=== PATIENT | male | born 1980 | race Caucasian/White ===

== ENCOUNTER → 2017-04-29 | Outpatient (CLI) | payer BC, OTHER ==
[~2017-04-29] MED LIST: CATHETER FLUSH 10 ML SYR IV PRN
--- NOTE | 2017-04-29 12:36 | Diagnostic Imaging Report ---
EXAMINATION: Hepatobiliary scan with ejection fraction. INDICATION: Abdominal pain. TECHNIQUE: The study was performed following administration of 5.48 mCi of 99M technetium Choletec. One can of Ensure was also used for the ejection fraction. COMPARISON: There are no prior studies available for comparison. FINDINGS: There is uptake of the radiotracer by the gallbladder before 30 minutes. This would weigh against the diagnosis of acute cholecystitis. There is also extension of the radiotracer into the small bowel indicating that the common bile duct is not obstructed. The ejection fraction is 71.9% (normal greater than 35%) IMPRESSION: 1. There is no evidence for acute cholecystitis or for obstruction of the common bile duct. 2. The ejection fraction is 71.9% and well within normal limits. Dictated by: Dictated on workstation # [id number]
== END ==
LOC: CARD 09:54
PROVIDERS: ATTEND Surgery
DX: R10.11 Right upper quadrant pain (principal)
CPT/HCPCS: 78227

== ENCOUNTER 2021-08-07 10:07 | Outpatient (RCR) | payer BC, OTHER ==
--- NOTE | 2021-09-07 08:36 | 30 Day Event Recorder ---
30-DAY EVENT RECORDER 30-DAY MOBILE CARDIAC OUTPATIENT TELEMETRY DATE OF PROCEDURE: 08/07/2021-09/05/2021. INDICATION: Palpitation. PROCEDURE: A 30-day mobile cardiac outpatient telemetry was obtained for a total of 27 days. 42 rhythm strips were presented for review. The study quality is adequate. RESULTS: 1. Baseline sinus rhythm with an average heart rate of 86 bpm, ranging from 50- 165 bpm. 2. There were rare, isolated premature supraventricular complexes representing less than 1% of the total recording time. 3. There were occasional, isolated premature ventricular complexes representing 1% of the total recording time. 4. There were no pauses exceeding 2 seconds in duration. 5. There were 4 patient events that correlated to sinus rhythm with heart rates ranging from 77-94 bpm with no arrhythmias. IMPRESSION: 1. This is a 30-day mobile cardiac outpatient telemetry that was obtained for total of 27 days. 2. Baseline sinus rhythm with an average heart rate of 86 bpm, ranging from 50- 165 bpm with rare, isolated premature supraventricular complexes and occasional, isolated premature ventricular complexes. 3. There were 4 patient events that correlated to sinus rhythm with heart rates ranging from 77-94 bpm with no arrhythmias. Certain portions of this document may have been dictated utilizing voice recognition technology. Inherent to this technology, typographical and grammatical errors may exist. As much as I am diligent to identify and correct these mistakes, some errors may remain in the document. EUSEBIA FERRER JR, MD Sep 07, 2021 08:36
== END 2021-09-08 | disposition home or self-care (01) ==
LOC: CARD 10:07
PROVIDERS: ATTEND Family Medicine
DX: R00.2 Palpitations (principal)